=== PATIENT | female | born 1990 | race Caucasian/White ===

== ENCOUNTER 2021-07-03 07:10 | Inpatient (IN) | payer OTHER ==
[2021-07-03 09:17] VITALS: BMI 27.4
[2021-07-03] MEDS ORDERED: BUTORPHANOL TARTRATE 1 MG/ML VIAL IVPB PRN (10:42)
[2021-07-03] MEDS ORDERED: PROMETHAZINE HCL 25 MG/1 ML VIAL IVPUSH ONE (10:42)
[2021-07-03] MEDS ORDERED: DINOPROSTONE 10 MG VAGINAL SUPPOSITORY VG ONE (11:00)
[2021-07-03] MEDS: ELECTROLYTE-148 SOLN 1,000 ML IV SCH (11:00)
[2021-07-04] MEDS: ELECTROLYTE-148 SOLN 1,000 ML IV SCH (08:15)
[2021-07-04] MEDS ORDERED: OXYTOCIN 30 UNITS in 0.9% NS 30 UNIT/500 ML INFUS.BAG IVPB ONE (10:36)
[2021-07-04] MEDS: OXYTOCIN 30 UNITS in 0.9% NS 30 UNIT/500 ML INFUS.BAG IVPB SCH (11:00)
[2021-07-05] MEDS: OXYTOCIN 30 UNITS in 0.9% NS 30 UNIT/500 ML INFUS.BAG IVPB SCH (07:00)
[2021-07-05] MEDS ORDERED: FENTANYL/BUPIVACAINE/NS/PF - PCEA - 50 ML DISP.SYRIN EP ONE ×3 (08:21→19:13)
[2021-07-05] MEDS ORDERED: LIDOCAINE HCL/PF 2% SDV 5ML VIAL ONE ×2 (08:37→19:55)
[2021-07-05] MEDS ORDERED: BUPIVACAINE HCL/PF 0.25% (2.5MG/ML) 10 ML VIAL ONE (08:37)
[2021-07-05] MEDS ORDERED: LIDOCAINE HCL/EPINEPHRINE/PF 20 ML VIAL ONE (08:38)
[2021-07-05] MEDS ORDERED: NALOXONE HCL 0.4 MG/ML VIAL IVPUSH PRN (09:51)
[2021-07-05] MEDS ORDERED: FENTANYL/BUPIVACAINE/NS/PF - PCEA - 50 ML DISP.SYRIN EP SCH (10:00)
[2021-07-05] MEDS: ELECTROLYTE-148 SOLN 1,000 ML IV SCH ×2 (11:00→22:19)
[2021-07-05] MEDS ORDERED: LIDOCAINE HCL 2% 100 MG/5 ML DISP.SYRIN ONE (19:54)
[2021-07-05] MEDS: METHYLERGONOVINE MALEATE 0.2 MG/1 ML AMP IM PRN ×2 (20:30→23:45)
[2021-07-05] MEDS ORDERED: AZITHROMYCIN IVPB 500 MG/250 ML BAG IVPB ONE (20:31)
[2021-07-05] MEDS ORDERED: morphine SULFATE/PF 1 MG/2 ML (2cc Syringe - QUVA) ONE ×2 (20:52)
[2021-07-05 21:35] LABS: CORD BASE EXCESS -2.1 mmol/L (0-2); CORD HCO3 22.7 mmHg (20-29); CORD PCO2 38.9 mmHg (30-78); CORD pH 7.383 (7.14-7.44)
[2021-07-05] MEDS ORDERED: IBUPROFEN 800 MG/8 ML IJ IVPB PRN (22:33)
[2021-07-05] MEDS ORDERED: BENZOCAINE 28 GM HEMORRHOIDAL OINTMENT TP PRN (22:33)
[2021-07-05] MEDS ORDERED: ACETAMINOPHEN 325 MG TABLET (FP) PO PRN (22:33)
[2021-07-05] MEDS ORDERED: WITCH HAZEL 50% (TUCKS) 40 PAD/JAR PAD TP PRN (22:33)
[2021-07-05] MEDS ORDERED: BENZOCAINE 20% 57 GM BOTTLE TP PRN (22:33)
[2021-07-05] MEDS: OXYTOCIN 20 UNITS in 0.9% NS 20 UNIT/1,000 ML INFUS.BAG IV SCH (22:52)
[2021-07-05] MEDS ORDERED: OXYTOCIN 20 UNITS in 0.9% NS 20 UNIT/1,000 ML INFUS.BAG IV ONE (23:14)
[2021-07-05] MEDS ORDERED: ACETAMINOPHEN INJECTION 100 ML IVPB ONE (23:35)
[2021-07-05] MEDS: ACETAMINOPHEN 1000 MG/100 ML BAG IVPB PRN (23:46)
[2021-07-05 23:50] LABS: BASO % 0.2 % (0-2.0); EOS % 0.1 % (0-4.5); HEMATOCRIT 32.7 % (32.4-45.2); HEMOGLOBIN 11.2 GM/dL (10.7-15.3); LYMPH % 10.3 % (8-40); MCH 30.5 pg (25.7-33.7); MCHC 34.4 g/dl (32.0-36.0); MEAN CELL VOLUME 88.7 fl (80-96); MEAN PLT VOLUME 7.7 fl (7.5-11.1); MONO % 5.2 % (3.8-10.2); NEUT % 84.2 % (42.8-82.8); PLATELET COUNT 193 10^3/uL (134-434); RBC 3.69 M/mm3 (3.60-5.2); RDW 13.5 % (11.6-15.6); WHITE BLOOD COUNT 13.2 K/mm3 (4.0-10.0)
[2021-07-06] MEDS ORDERED: ceFAZolin SODIUM 1 GM VIAL ONE ×3 (01:53→17:43)
[2021-07-06] MEDS: CEFAZOLIN 1 GM in DEXTROSE 5%-WATER - 50 ML IVPB SCH ×3 (01:59→17:49)
[2021-07-06] MEDS ORDERED: OXYTOCIN 20 UNITS in 0.9% NS 20 UNIT/1,000 ML INFUS.BAG IV ONE (05:19)
[2021-07-06] MEDS: OXYTOCIN 20 UNITS in 0.9% NS 20 UNIT/1,000 ML INFUS.BAG IV SCH (05:20)
[2021-07-06] MEDS: METHYLERGONOVINE MALEATE 0.2 MG/1 ML AMP IM PRN (08:27)
[2021-07-06] MEDS ORDERED: ACETAMINOPHEN INJECTION 100 ML IVPB ONE (08:27)
[2021-07-06] MEDS: ACETAMINOPHEN 1000 MG/100 ML BAG IVPB PRN (08:30)
[2021-07-06 09:10] LABS: BASO % 0.3 % (0-2.0); EOS % 0.1 % (0-4.5); HEMATOCRIT 25.9 % (32.4-45.2); HEMOGLOBIN 8.9 GM/dL (10.7-15.3); LYMPH % 13.9 % (8-40); MCH 30.5 pg (25.7-33.7); MCHC 34.2 g/dl (32.0-36.0); MEAN CELL VOLUME 89.1 fl (80-96); MEAN PLT VOLUME 7.7 fl (7.5-11.1); NEUT % 79.7 % (42.8-82.8); PLATELET COUNT 170 10^3/uL (134-434); RBC 2.91 M/mm3 (3.60-5.2); RDW 13.3 % (11.6-15.6); WHITE BLOOD COUNT 7.9 K/mm3 (4.0-10.0)
[2021-07-06] MEDS: OXYTOCIN 30 UNITS in 0.9% NS 30 UNIT/500 ML INFUS.BAG IVPB SCH (09:26)
[2021-07-06] MEDS ORDERED: ACETAMINOPHEN 1000 MG/100 ML BAG IVPB PRN (09:43)
[2021-07-06] MEDS ORDERED: CLINDAMYCIN 900 MG PREMIX IVPB 900 MG/50 ML BAG IVPB SCH (10:00)
[2021-07-06] MEDS ORDERED: oxyCODONE HCL 5 MG TABLET PO PRN ×2 (10:33)
[2021-07-06] MEDS ORDERED: FERROUS SO4 325 MG TABLET (FP) ONE (10:46)
[2021-07-06] MEDS ORDERED: PRENATAL VITAMINS W/ FOLIC ACID TABLET (FP) PO ONE (10:47)
[2021-07-06] MEDS: FERROUS SO4 325 MG TABLET (FP) PO SCH ×2 (10:50→21:47)
[2021-07-06] MEDS: PRENATAL VITAMINS W/ FOLIC ACID TABLET (FP) PO SCH (10:50)
[2021-07-06] MEDS ORDERED: IBUPROFEN 800 MG/8 ML IJ IVPB ONE (13:23)
[2021-07-06] MEDS ORDERED: DEXTROSE 5%-WATER - 50 ML IVPB ONE (17:43)
[2021-07-06] MEDS: SIMETHICONE 80 MG TAB.CHEW (FP) PO PRN (21:47)
[2021-07-06] MEDS: IBUPROFEN 600 MG TABLET (FP) PO PRN (21:47)
[2021-07-06] MEDS ORDERED: BISACODYL 10 MG SUPP.RECT RC PRN (22:33)
[2021-07-07] MEDS: PRENATAL VITAMINS W/ FOLIC ACID TABLET (FP) PO SCH (10:50)
[2021-07-07] MEDS: SIMETHICONE 80 MG TAB.CHEW (FP) PO PRN ×2 (10:50→17:47)
[2021-07-07] MEDS: FERROUS SO4 325 MG TABLET (FP) PO SCH ×2 (10:50→22:02)
[2021-07-07] MEDS: IBUPROFEN 600 MG TABLET (FP) PO PRN ×3 (10:50→22:03)
[2021-07-07 21:36] VITALS: PULSE 93
[2021-07-08] MEDS: OXYTOCIN 20 UNITS in 0.9% NS 20 UNIT/1,000 ML INFUS.BAG IV SCH (07:09)
[2021-07-08] MEDS: IBUPROFEN 600 MG TABLET (FP) PO PRN (07:58)
[2021-07-08 09:15] LABS: BASO % 0.7 % (0-2.0); EOS % 3.1 % (0-4.5); HEMATOCRIT 22.8 % (32.4-45.2); HEMOGLOBIN 7.9 GM/dL (10.7-15.3); LYMPH % 24.5 % (8-40); MCHC 34.7 g/dl (32.0-36.0); MEAN CELL VOLUME 89.2 fl (80-96); MEAN PLT VOLUME 7.3 fl (7.5-11.1); MONO % 7.8 % (3.8-10.2); NEUT % 63.9 % (42.8-82.8); PLATELET COUNT 193 10^3/uL (134-434); RBC 2.56 M/mm3 (3.60-5.2); RDW 13.6 % (11.6-15.6); WHITE BLOOD COUNT 4.8 K/mm3 (4.0-10.0)
[2021-07-08 09:19] VITALS: BP 106/71; TEMP 98.2
[2021-07-08] MEDS: PRENATAL VITAMINS W/ FOLIC ACID TABLET (FP) PO SCH (09:19)
[2021-07-08] MEDS: FERROUS SO4 325 MG TABLET (FP) PO SCH (09:19)
== END 2021-07-08 11:55 | disposition home or self-care (01) | DRG 540 ==
LOC: JLDR 07:10 → J3W 14:45 → JLDR 07-04 03:39 → J3W 07-06 16:10
PROVIDERS: ADMIT Obstetrics & Gynecology; ATTEND Obstetrics & Gynecology
PROC: 3E0P7VZ Introduction of Hormone into Female Reproductive, Via Natural or Artificial Opening (ICD-10-PCS; 2021-07-03)
PROC: 10D00Z1 Extraction of Products of Conception, Low, Open Approach (ICD-10-PCS; principal; 2021-07-05)
DX: O48.0 Post-term pregnancy (principal); O33.8 Maternal care for disproportion of other origin; O62.9 Abnormality of forces of labor, unspecified; O90.81 Anemia of the puerperium; D64.9 Anemia, unspecified; O99.824 Streptococcus B carrier state complicating childbirth; Z3A.41 41 weeks gestation of pregnancy; Z37.0 Single live birth
CPT/HCPCS: 36415; 36600; 80048; 82803; 85025; 85610; 85730; 86780; 86850; 86900; 86901; 88307-TC; C9803; U0003; U0005